=== PATIENT | female | born 1975 | race Caucasian/White ===

== ENCOUNTER → 2016-06-30 | Outpatient (CLI) | payer BC ==
[~2016-06-30] MED LIST: IBUP600T OR; IBUP600T PO; PERC5TAB8 OR; PERC7.5T8 OR
--- NOTE | 2016-06-30 10:16 | REP ---
Left knee series: Five views. History: Progressive pain. No comparison radiographs. Findings: Five views of the left knee demonstrate normal bones, joints and soft tissues. No evidence of joint effusion. Impression: No significant abnormality. Signed by Samuel Paris MD 06/30/2016 01:58 P
== END ==
LOC: M LRY 07:45
PROVIDERS: ATTEND Physician Assistant
DX: M25.562 Pain in left knee (principal)

== ENCOUNTER → 2022-07-10 | Outpatient (CLI) | payer BC, OTHER | LOC: M LABSMTC 07:43 | PROVIDERS: ATTEND Anesthesiology | DX: Z20.822 Contact with and (suspected) exposure to COVID-19 (principal) ==

== ENCOUNTER 2022-07-14 06:40 | Day surgery (SDC) | payer OTHER ==
[~2022-07-14] VITALS: Ht 172.7 cm; Wt 80.2 kg
[~2022-07-14 06:40] MED LIST changes: +NS 1,000 ML IV ONE
[2022-07-14] MEDS ORDERED: LIDOCAINE 2% 100MG/5ML SDV (FOR ANES.) As Ordered ONE (07:24)
[2022-07-14] MEDS ORDERED: propofoL 200 MG/20 ML VIAL As Ordered ONE ×2 (07:24→08:04)
[2022-07-14] MEDS ORDERED: PHENYLephrine 500MCG 5ML (100MCG/ML) SYRINGE As Ordered ONE (08:25)
[2022-07-14 08:45] VITALS: BP 110/69
== END 2022-07-14 08:50 | disposition home or self-care (01) ==
LOC: M OPP 06:40
PROVIDERS: ATTEND Internal Medicine Gastroenterology
DX: Z12.11 Encounter for screening for malignant neoplasm of colon (principal); D12.6 Benign neoplasm of colon, unspecified; K64.4 Residual hemorrhoidal skin tags; K64.8 Other hemorrhoids; K57.30 Diverticulosis of large intestine without perforation or abscess without bleeding; F17.290 Nicotine dependence, other tobacco product, uncomplicated; Z80.1 Family history of malignant neoplasm of trachea, bronchus and lung; Z80.3 Family history of malignant neoplasm of breast; Z80.6 Family history of leukemia
CPT/HCPCS: 45385; 88305; J2370